=== PATIENT | female | born 1995 | race Caucasian/White ===

== ENCOUNTER 2017-03-26 22:45 | Emergency (ER) | payer SELFPAY ==
[~2017-03-26] VITALS: Ht 165.1 cm; Wt 60.9 kg
[2017-03-26 22:45] VITALS: BP 108/68
[2017-03-26] MEDS ORDERED: AMOXICILLIN 50500 MG PO (23:39)
[2017-03-26 23:58] VITALS: PULSE 84; TEMP 101.4
== END 2017-03-26 23:58 | disposition home or self-care (01) ==
LOC: COL.ER 22:45
DX: J02.0 Streptococcal pharyngitis (principal)

== ENCOUNTER 2017-07-26 08:16 | Emergency (ER) | payer SELFPAY ==
[~2017-07-26] VITALS: Ht 165.1 cm; Wt 59.1 kg
[~2017-07-26 08:16] MED LIST: AMOXICILLIN 50500 MG PO
[2017-07-26 08:20] VITALS: BP 108/73; TEMP 97.8
[2017-07-26 09:04] LABS: HEMATOCRIT 44.6 % (37.0-47.0); HEMOGLOBIN 15.3 g/dl (12.5-16.0); MEAN CELL VOLUME 94 fl (80.0-100.0); MEAN CORPUSCULAR HEMOGLOBIN 32 pg (27.0-31.0); MEAN CORPUSCULAR HGB CONC 34 g/dl (33.0-37.0); MEAN PLATELET VOLUME 10.2 fl (7.4-10.4); PLATELET COUNT 253 K/mm3 (130-400); RED BLOOD COUNT 4.74 M/mm3 (4.10-5.30); WHITE BLOOD COUNT 13.1 K/mm3 (4.8-10.8)
[2017-07-26 09:09] LABS: ADD PATHOLOGY DIFF REVIEW NO
[2017-07-26 09:14] LABS: ADJUSTED CALCIUM 8.7 mg/dL (8.4-10.2); ALANINE AMINOTRANSFERASE 24 U/L (9-52); ALBUMIN 5.1 gm/dL (3.5-5.0); ALKALINE PHOSPHATASE 66 U/L (50-136); ANION GAP 11 mmol/L (7-16); BILIRUBIN,TOTAL 1.9 mg/dL (0.0-1.0); BLOOD UREA NITROGEN 14 mg/dL (7-17); C-REACTIVE PROTEIN < 0.5 mg/dL (0.0-0.9); CALCIUM 9.6 mg/dL (8.4-10.2); CARBON DIOXIDE 24 mmol/L (22-30); CHLORIDE 103 mmol/L (98-107); CREATININE, serum 0.68 mg/dL (0.52-1.25); GLUCOSE 113 mg/dL (74-106); LIPASE 101 U/L (23-300); SODIUM 139 mmol/L (137-145); TOTAL PROTEIN 8.2 gm/dL (6.4-8.2)
[2017-07-26 09:38] LABS: COLLECTION METHOD CLEAN CATCH
[2017-07-26 09:45] LABS: MUCOUS Present /lpf; PH 7 (5-8); URINE APPEARANCE Clear; URINE BACTERIA Rare /hpf; URINE BILIRUBIN Negative (NEGATIVE); URINE BLOOD Negative (NEGATIVE); URINE COLOR Yellow; URINE GLUCOSE Negative (NEGATIVE); URINE KETONE Trace (NEGATIVE); URINE LEUKOCYTE ESTERASE Negative (NEGATIVE); URINE PROTEIN(semi-quant) Negative (NEGATIVE); URINE RBC 0-2 /hpf; URINE UROBILINOGEN Negative (NEGATIVE); URINE WBC 0-2 /hpf
[2017-07-26] MEDS ORDERED: ZOFRAN 4MG T4 MG/TAB PO (10:01)
[2017-07-26] MEDS ORDERED: PROTONIX 40MG T40 MG PO (10:01)
[2017-07-26 10:04] LABS: BAND 37 % (0-10); LYMPHOCYTE 5 % (20.0-51.0); NEUTROPHILS 58 % (42.0-75.2); PLATELET ESTIMATE NORMAL (NORMAL); TOTAL CELLS COUNTED 100
[2017-07-26 10:12] VITALS: PULSE 88
== END 2017-07-26 10:12 | disposition home or self-care (01) ==
LOC: COL.ER 08:16
PROVIDERS: Emergency Medicine
DX: R11.10 Vomiting, unspecified (principal); R10.13 Epigastric pain
CPT/HCPCS: J1885; J2405; J2550; J7030